=== PATIENT | male | born 1985 | race Caucasian/White ===

== ENCOUNTER 2022-09-03 16:21 | Emergency (ER) | payer OTHER ==
[~2022-09-03] VITALS: Ht 190.5 cm; Wt 86.2 kg
[2022-09-03] MEDS ORDERED: GABA-536 PO (16:43)
[2022-09-03] MEDS ORDERED: TRAZ-182 PO (16:43)
[2022-09-03] MEDS ORDERED: ONDANSETRON 4 MG/2 ML VIAL IV ONE (17:30)
[2022-09-03] MEDS ORDERED: MORPHINE SULFATE 4 MG/1 ML DISP.SYRIN IV ONE (17:30)
[2022-09-03 17:31] LABS: HEMATOCRIT 43.7 % (36.7-47.1); MEAN CORPUSCULAR HEMOGLOBIN 31.1 uug (23.8-33.4); MEAN CORPUSCULAR VOLUME 86.9 fL (73.0-96.2); PLATELET COUNT (AUTO) 172 K/uL (152-348)
[2022-09-03] MEDS ORDERED: ONDANSETRON 4 MG/2 ML VIAL ONE (17:32)
[2022-09-03] MEDS ORDERED: MORPHINE SULFATE 4 MG/1 ML DISP.SYRIN ONE (17:33)
[2022-09-03 17:38] LABS: CARBON DIOXIDE 26 mmol/L (21-32); CHLORIDE 105 mmol/L (98-107); CREATININE 0.8 mg/dL (0.6-1.3); GLUCOSE 128 mg/dL (74-106); POTASSIUM 3.6 mmol/L (3.5-5.1); UREA NITROGEN, BLOOD 17 mg/dL (7-18)
[2022-09-03 17:46] LABS: ALANINE AMINOTRANSFERASE 39 U/L (16-63); ALKALINE PHOSPHATASE 95 U/L (50-136); ASPARTATE AMINOTRANSFERASE 24 U/L (15-37); BILIRUBIN,DIRECT 0.1 mg/dL (0.0-0.2); BILIRUBIN,TOTAL 0.7 mg/dL (0.2-1.0); LIPASE 41 U/L (73-393); TOTAL PROTEIN, SERUM 7.4 g/dL (6.4-8.2)
[2022-09-03] MEDS ORDERED: KETOROLAC TROMETHAMINE 15 MG INJ IVP ONE (19:00)
--- NOTE | 2022-09-03 19:10 | NUR ---
Report received from Rafal SPENCE.
[2022-09-03] MEDS ORDERED: KETOROLAC TROMETHAMINE 15 MG INJ ONE (19:31)
--- NOTE | 2022-09-03 19:45 | NUR ---
Patient discharged to home in stable condition. Tap card given to patient. A/O x 4. NAD noted. Ambulatory with a steady gait. All belongings with patient. Written and verbal after care instructions given. Patient verbalizes understanding of instructions. Stressed follow up or return to ER for worsening s/s.
[2022-09-03 19:54] VITALS: BP 140/85
== END 2022-09-03 19:45 | disposition home or self-care (01) ==
LOC: ER 16:21
DX: R10.31 Right lower quadrant pain (principal); R07.9 Chest pain, unspecified; R10.11 Right upper quadrant pain; I45.10 Unspecified right bundle-branch block; Z86.73 Personal history of transient ischemic attack (TIA), and cerebral infarction without residual deficits; Z87.820 Personal history of traumatic brain injury; F10.10 Alcohol abuse, uncomplicated
CPT/HCPCS: 36415; 71045; 76705; 83690; 84484; 85025; 93005; A4663; J1885; J2270; J2405